=== PATIENT | female | born 1965 | race Caucasian/White ===

== ENCOUNTER 2016-11-01 12:30 | Emergency (ER) | payer MEDICAID, OTHER ==
[2016-11-01] MEDS ORDERED: HYDROCODONE/ACETAMINOPHEN 5/325MG TABLET ONE ×2 (14:26)
[2016-11-01] MEDS ORDERED: DIAZEPAM 5 MG TABLET ONE (14:26)
[2016-11-01] MEDS ORDERED: IBUPROFEN 800 MG TABLET ONE (14:26)
== END 2016-11-01 16:46 | disposition home or self-care (01) ==
LOC: ED 12:30
DX: M54.14 Radiculopathy, thoracic region (principal); M54.2 Cervicalgia; E03.9 Hypothyroidism, unspecified; F17.210 Nicotine dependence, cigarettes, uncomplicated
CPT/HCPCS: 99283 ×2; A9270 ×4